=== PATIENT | female | born 1945 | race Caucasian/White ===

== ENCOUNTER 2017-05-05 06:46 | Day surgery (SDC) | payer OTHER ==
[~2017-05-05 06:46] MED LIST: LIDOCAINE HCL 1% 5 ML ONE; PROPOFOL 500 MG/50 ML EMU IV ONE
[2017-05-05 07:38] VITALS: BP 117/77; RESP 18
[2017-05-05 07:47] VITALS: PULSE 60; TEMP 96.7; O2SAT 97
== END 2017-05-05 07:58 | disposition home or self-care (01) | DRG 951 ==
LOC: SURG 06:46
PROVIDERS: ATTEND Surgery
DX: Z12.11 Encounter for screening for malignant neoplasm of colon (principal); Z83.71 Family history of colonic polyps; Z86.010 Personal history of colon polyps
CPT/HCPCS: J2704

== ENCOUNTER 2018-03-23 08:08 | Day surgery (SDC) | payer OTHER ==
[~2018-03-23 08:08] MED LIST changes: +FENTANYL 100MCG/2ML SOL ONE; -LIDOCAINE HCL 1% 5 ML ONE; +LIDOCAINE HCL 1% MPF 30 SOL ONE
[2018-03-23 09:52] VITALS: BP 123/83; PULSE 68; RESP 18; TEMP 96.6; O2SAT 90
== END 2018-03-23 10:15 | disposition home or self-care (01) | DRG 812 ==
LOC: SURG 08:08
PROVIDERS: ATTEND Surgery
DX: D50.9 Iron deficiency anemia, unspecified (principal); K44.9 Diaphragmatic hernia without obstruction or gangrene
CPT/HCPCS: 43235; G0105; J3010; J2001; J2704

== ENCOUNTER 2018-12-01 08:23 | Day surgery (SDC) | payer OTHER ==
[~2018-12-01 08:23] MED LIST changes: +ACETAZOLAMIDE 250 MG PO ONE; -FENTANYL 100MCG/2ML SOL ONE; -LIDOCAINE HCL 1% MPF 30 SOL ONE; -PROPOFOL 500 MG/50 ML EMU IV ONE
[2018-12-01] MEDS: TETRACAINE HCL 0.5 % 1 DROP SOL ONE ×3 (08:42→09:39)
[2018-12-01] MEDS: CYCLOPENTOLATE 1% SOL ONE ×2 (08:42→08:54)
[2018-12-01] MEDS: PHENYLEPHRINE HCL 10% OPHTHAL SOL ONE ×2 (08:42→08:54)
[2018-12-01] MEDS: KETOROLAC 0.5% OPTH 60 DROP SOL ONE ×2 (08:43→08:54)
[2018-12-01] MEDS ORDERED: MIDAZOLAM 2 MG/2 ML SOL ONE (09:12)
[2018-12-01] MEDS ORDERED: FENTANYL 100MCG/2ML SOL ONE (09:12)
[2018-12-01] MEDS ORDERED: POVIDONE IODINE 5% SOL ONE (09:35)
[2018-12-01] MEDS ORDERED: LIDOCAINE HCL 1% MPF 30 SOL ONE (09:35)
[2018-12-01] MEDS ORDERED: IMPRIMIS ONE (09:35)
[2018-12-01] MEDS ORDERED: BSS 500 ML 500 ML IR ONE (09:35)
[2018-12-01 10:02] VITALS: BP 119/81; PULSE 70; RESP 20; O2SAT 97
[2018-12-01 10:03] VITALS: TEMP 96.9
== END 2018-12-01 10:25 | disposition home or self-care (01) | DRG 125 ==
LOC: SURG 08:23
PROVIDERS: ATTEND Ophthalmology
DX: H25.89 Other age-related cataract (principal)
CPT/HCPCS: J2250; J3010; A9270-GY; J2001